=== PATIENT | female | born 1950 | race Caucasian/White ===

== ENCOUNTER 2017-02-20 14:06 | Inpatient (IN) | payer OTHER ==
--- NOTE | 2017-02-20 14:28 | EDPHY ---
HPI/HX/ROS/PE/MDM Narrative: CHIEF COMPLAINT: Chest pain HPI: The patient is a 66-year-old female with a history of prior syncopal episodes of unknown etiology. Patient has been in her usual state of health until this morning. She awoke around 4:00 a.m. and was reading in bed when she developed left-sided chest pain that was worse with inspiration, causing shortness of breath. Patient became very diaphoretic after she attempted to drink some fluid and her symptoms largely resolved after 1 hour. She denies fever or cough. She also describes feeling somewhat fuzzy in her head and complains of left-sided headache that has been present for several months. No syncope. REVIEW OF SYSTEMS: Aside from elements discussed in the HPI, a comprehensive 10-point review of systems was reviewed and is negative. PMH: Includes history of syncope. The patient tells me that Dr. Jones recommended a pacemaker to be placed but she refused. SOCIAL HISTORY: Patient is retired. She used to work in finance. She denies alcohol or drug abuse. PHYSICAL EXAM: General:Patient is alert, in no acute distress. ENT:Eyes are normal to inspection. ENT inspection normal. Neck: Normal inspection. Full range of motion. Respiratory:No respiratory distress. Breath sounds normal bilaterally. Cardiovascular: Regular rate and rhythm. Strong peripheral pulses. Normal cap refill. Abdomen:The abdomen is nontender to palpation. There are no peritoneal signs. There are normal bowel sounds. Back: Normal to inspection. No tenderness to palpation. Skin: Normal color. No rash. Warm and dry. Extremities: Normal appearance. Full range of motion. Neuro: Oriented x3. Normal motor function. Normal sensory function. (Trenton England) ED Course: EKG: No acute changes. No change from previous ECG in 2012. (Trenton England) MDM: 3:40 p.m. the patient's care is transferred to ar. The patient's lab work is unremarkable. Chest x-ray shows mild LVH. EKG is unremarkable. The patient still feels very weak and fatigued however. She still is having pleuritic left- sided chest pain. I recommended admission for further evaluation and cardiac rule out. She agrees. She states that she does not feel safe to go home. For p.m. I discussed the case with Dr. Martha Warren who will admit. (Kyle Page) This patient presents with left-sided chest pain that has a pleuritic component. Her ECG is unremarkable. I have signed the patient out to Dr. Page at 1500 pending completion of workup. (Trenton England) - Data Points Laboratory Results: Laboratory Results 02/20/17 14:32 02/20/17 14:32 02/20/17 02/20/17 02/20/17 14:32 14:32 14:32 WBC 7.60 10^3/uL 10^3/uL (3.80-9.50) RBC 4.80 10^6/uL 10^6/uL (4.18-5.33) Hgb 14.7 g/dL g/dL (12.6-16.3) Hct 42.8 % % (38.0-47.0) MCV 89.2 fL fL (81.5-99.8) MCH 30.6 pg pg (27.9-34.1) MCHC 34.3 g/dL g/dL (32.4-36.7) RDW 13.5 % % (11.5-15.2) Plt Count 290 10^3/uL 10^3/uL (150-400) MPV 11.2 fL fL (8.7-11.7) Neut % (Auto) 60.3 % % (39.3-74.2) Lymph % (Auto) 30.4 % % (15.0-45.0) [place] % (Auto) 7.8 % % (4.5-13.0) Eos % (Auto) 0.5 % L % (0.6-7.6) Baso % (Auto) 0.5 % % (0.3-1.7) Nucleat RBC Rel Count 0.0 % % (0.0-0.2) Absolute Neuts (auto) 4.58 10^3/uL 10^3/uL (1.70-6.50) Absolute Lymphs (auto) 2.31 10^3/uL 10^3/uL (1.00-3.00) Absolute Monos (auto) 0.59 10^3/uL 10^3/uL (0.30-0.80) Absolute Eos (auto) 0.04 10^3/uL 10^3/uL (0.03-0.40) Absolute Basos (auto) 0.04 10^3/uL 10^3/uL (0.02-0.10) Absolute Nucleated RBC 0.00 10^3/uL 10^3/uL (0-0.01) Immature Gran % 0.5 % % (0.0-1.1) Immature Gran # 0.04 10^3/uL 10^3/uL (0.00-0.10) D-Dimer < 0.27 ug/mLFEU ug/mLFEU (0.00-0.50) Sodium 138 mEq/L mEq/L (134-144) Potassium 3.6 mEq/L mEq/L (3.5-5.2) Chloride 102 mEq/L mEq/L (97-110) Carbon Dioxide 25 mEq/l mEq/l (22-31) Anion Gap 11 mEq/L mEq/L (8-16) BUN 8 mg/dL mg/dL (7-23) Creatinine 0.6 mg/dL mg/dL (0.6-1.0) Estimated GFR > 60 Glucose 98 mg/dL mg/dL (70-100) Calcium 9.5 mg/dL mg/dL (8.5-10.4) Troponin I < 0.012 ng/mL ng/mL (0-0.034) General Time Seen by Provider: 02/20/17 14:17 Initial Vital Signs: Initial Vital Signs Temperature (C) 37.1 C 02/20/17 14:10 Heart Rate 67 02/20/17 14:10 Respiratory Rate 18 02/20/17 14:10 Blood Pressure 164/66 H 02/20/17 14:10 O2 Sat (%) 97 02/20/17 14:10 O2 Delivery Mode Room Air Allergies/Adverse Reactions: No Known Allergies Allergy (Unverified 04/14/12 12:17) Home Medications: Medication Instructions Recorded NK [No Known Home Meds] 02/20/17 Departure - Departure Disposition: [facility] Inpatient Acute Clinical Impression: Chest pain in adult Condition: Fair
--- NOTE | 2017-02-20 14:35 | CPEKG ---
Heart Rate: 61 RR Interval: 984 P-R Interval: 188 QRSD Interval: 86 QT Interval: 440 QTC Interval: 444 P [place]: 60 QRS [place]: 4 T Wave [place]: 38 EKG Severity - NORMAL ECG - EKG Impression: SINUS RHYTHM Electronically Signed By: Trenton England 20-Feb-2017 14:51:38
[2017-02-20 14:42] LABS: % IMMATURE GRANULYOCYTES 0.5 % (0.0-1.1); ABSOLUTE IMMATURE GRANULOCYTES 0.04 10^3/uL (0.00-0.10); ADD DIFF? NO; ADD MORPH? NO; ADD SCAN? NO; ATYPICAL LYMPHOCYTE FLAG 0 (0-99); FRAGMENT RBC FLAG 0 (0-99); HEMATOCRIT 42.8 % (38.0-47.0); HEMOGLOBIN 14.7 g/dL (12.6-16.3); LEFT SHIFT FLG 0 (0-99); LIPEMIA HEMOLYSIS FLAG 90 (0-99); MEAN CELL HEMOGLOBIN 30.6 pg (27.9-34.1); MEAN CELL HEMOGLOBIN CONCENTR. 34.3 g/dL (32.4-36.7); MEAN CELL VOLUME 89.2 fL (81.5-99.8); MEAN PLATELET VOLUME 11.2 fL (8.7-11.7); PLATELET CLUMPS FLAG 0 (0-99); PLATELET COUNT 290 10^3/uL (150-400); RED CELL DISTRIBUTION WIDTH 13.5 % (11.5-15.2)
[2017-02-20 14:52] LABS: ANION GAP 11 mEq/L (8-16); CALCIUM 9.5 mg/dL (8.5-10.4); CARBON DIOXIDE 25 mEq/l (22-31); CHLORIDE 102 mEq/L (97-110); CREATININE 0.6 mg/dL (0.6-1.0); GLOMERULAR FILTRATION RATE > 60; GLUCOSE 98 mg/dL (70-100); POTASSIUM 3.6 mEq/L (3.5-5.2); SODIUM 138 mEq/L (134-144)
[2017-02-20 15:04] LABS: TROPONIN I < 0.012 ng/mL (0-0.034)
[2017-02-20] MEDS ORDERED: ONDANSETRON DISINTEGRATING 4 MG TAB PO PRN (18:19)
[2017-02-20] MEDS ORDERED: TEMAZEPAM 15 MG CAP PO PRN (18:19)
[2017-02-20] MEDS ORDERED: ONDANSETRON 4 MG/2 ML VIAL IVP PRN (18:19)
[2017-02-20] MEDS ORDERED: ACETAMINOPHEN 325 MG TAB PO PRN (18:19)
[2017-02-20] MEDS ORDERED: LIDOCAINE 2% VISCOUS 15 ML UDCUP PO ONE (18:23)
[2017-02-20] MEDS ORDERED: MAG HYDROX/AL HYDROX/SIMETH 30 ML UDCUP PO ONE (18:23)
[2017-02-20] MEDS ORDERED: HYOSCYAMINE SULFATE 0.125 MG TAB PO ONE (18:23)
[2017-02-20] MEDS ORDERED: PANTOPRAZOLE SODIUM 40 MG in NS 100 ML IV SCH (18:24)
[2017-02-20] MEDS ORDERED: NS 1,000 ML IV SCH (18:30)
[2017-02-20] MEDS ORDERED: ALBUTEROL 3 ML DEYVIAL IH PRN (18:36)
--- NOTE | 2017-02-20 19:14 | GHP ---
[f rep st] HISTORY AND PHYSICAL DATE OF ADMISSION: 02/20/2017 CHIEF COMPLAINT: Chest pain and difficulty swallowing. HISTORY OF PRESENT ILLNESS: The patient is a 66-year-old female with a history of asthma who presents to the emergency department complaining of chest pain and dysphagia. She states symptoms are associated with some shortness of breath. She recently returned from 10 months traveling in [place] during which time she occasionally drank wine or whiskey. She states she had some GI symptoms and stomach distress intermittently throughout this trip where she noted she ate richer foods than usual. Over the past several days, she has had some tightness in her chest which she initially thought was possibly related to acid. She also endorses some nausea and epigastric discomfort; however, her symptoms became more severe today with some associated shortness of breath and diaphoresis. She denies weight loss. As a matter of fact, she reports some weight gain due to her dietary changes while in [place]. Patient also reports some dysphagia symptoms. No odynophagia. She states while drinking a glass of water this morning, it felt like it was stuck in her esophagus and would not go down. She denies vomiting. She also gives a history of colon polyps and had a polyp that was difficult to retrieve by colonoscopy; thus, she also underwent partial colectomy. Evaluation in the emergency department reveals a nonischemic EKG with a negative troponin and a negative D-dimer. She is admitted to the hospital for further evaluation. PAST MEDICAL HISTORY: 1. Asthma, sounds like this is mild, intermittent. 2. Basal cell carcinoma. 3. History of colon polyps. PAST SURGICAL HISTORY: 1. Carpal tunnel left hand 1994. 2. Bilateral retinal surgery 2001. 3. Removal of basal cell carcinoma 2002. 4. Spinal fusion C5 through C7 in 2003. 5. Left shoulder decompression 2004. 6. Partial laparoscopic colectomy 2006. 7. History of bilateral cataract surgery. 8. Right foot surgery. MEDICATIONS: Flovent 45 mcg and albuterol nebulizer p.r.n., p.r.n. Tylenol, and vitamins. ALLERGIES: No known drug allergies though she reports a bad reaction to an anesthetic after surgery for spinal fusion. SOCIAL HISTORY: The patient denies drug or alcohol use. She lives independently. FAMILY HISTORY: Reviewed, noncontributory. REVIEW OF SYSTEMS: 10-point review of systems was performed and is negative except as per HPI. OBJECTIVE: VITAL SIGNS: Temperature 36.4, blood pressure 146/69, heart rate 50s to 70s, respiratory rate 18. She is 94% on room air. GENERAL: Patient is awake, alert, oriented, no acute distress. HEENT: Head is atraumatic, normocephalic. Pupils equal, round, and reactive to light. Extraocular muscles are intact. Oropharynx clear. Mucous membranes are moist. NECK: Supple. There is no JVD. HEART: Regular rate without murmur. LUNGS: Clear to auscultation bilaterally. ABDOMEN: Soft, nondistended. There is mild diffuse tenderness to palpation without rebound, rigidity, or guarding. Normoactive bowel tones are present. EXTREMITIES: Reveal bilateral trace lower extremity edema. NEUROLOGIC: Grossly nonfocal. LABORATORY DATA: CBC is normal. D-dimer is negative. Basic metabolic panel is completely normal. Creatinine 0.6. Troponin is negative. EKG in the emergency department reveals normal sinus rhythm with minimal ST depression in the lateral leads. Otherwise, no acute ischemic changes are noted. Chest x-ray shows no evidence of pneumonia or acute heart failure. Chest x-ray is personally reviewed by myself. Radiology report is reviewed who raises suspicion for possible left ventricular hypertrophy. ASSESSMENT AND PLAN: The patient is a 66-year-old female with history of asthma who presented to the emergency department with chest tightness and dysphagia. 1. Chest pain. My suspicion for acute coronary syndrome is low. Patient is currently chest pain free. She has a nonischemic EKG and a negative troponin. Given her associated symptoms of shortness of breath and diaphoresis, it is prudent to rule her out, so we will admit her and trend her troponins. An exercise stress test is ordered for the morning if her troponins are negative and she continues to have nonischemic EKG. Alternatively, this could be done as an outpatient given her low risk DIONICIO score of 1. I have some suspicion for a GI source of her symptoms and will try a GI cocktail. I am going to give her IV Protonix for now given her reported dysphagia. 2. Dysphagia. IV PPI as above, transition to oral as tolerated. Speech/ swallow eval. I will order an upper GI study to rule out any type of stricture or obvious mass. If this is abnormal, then she may warrant an upper endoscopy. 3. Asthma. There is no evidence of an acute exacerbation of her asthma. Will order p.r.n. albuterol nebulizers and continue her outpatient Flovent. DISPOSITION: Patient admitted to observation status. If the above workup is reassuring, she will likely be discharged home tomorrow. /[id number]/MODL MTDD
[2017-02-20] MEDS: SUCRALFATE 1 GM TAB PO SCH (20:23)
[2017-02-20] MEDS: PANTOPRAZOLE SODIUM 40 MG in NS 100 ML IV SCH (20:24)
[2017-02-20] MEDS: FLUTICASONE HFA 44 MCG MDI IH SCH (22:00)
[2017-02-21 05:35] LABS: CHOLESTEROL 197 mg/dL (140-220); CHOLESTEROL/HDL RATIO 3.28 RATIO (1.00-4.44); HIGH DENSITY LIPOPROTEIN 60 mg/dL (40-85); LOW DENSITY LIPOPROTEIN 126 mg/dL (80-100); NON-HIGH DENSITY LIPOPROTEIN 137 mg/dL (90-129); TRIGLYCERIDE 58 mg/dL (35-135); VERY LOW DENSITY LIPOPROTEINS 11 mg/dL (8-25)
--- NOTE | 2017-02-21 08:07 | CPEKG ---
Heart Rate: 50 RR Interval: 1200 P-R Interval: 212 QRSD Interval: 76 QT Interval: 464 QTC Interval: 424 P [place]: 66 QRS [place]: 35 T Wave [place]: 42 EKG Severity - BORDERLINE ECG - EKG Impression: SINUS BRADYCARDIA EKG Impression: SLIGHT ST DEPRESSION V3-V6 EKG Impression: NO SIGNIFICANT CHANGE SINCE FEBRUARY 20, 2017 Electronically Signed By: Miguel Gonzalez 21-Feb-2017 08:27:30
[2017-02-21] MEDS: PANTOPRAZOLE SODIUM 40 MG in NS 100 ML IV SCH (08:11)
[2017-02-21] MEDS: SUCRALFATE 1 GM TAB PO SCH ×4 (08:13→19:54)
[2017-02-21] MEDS: FLUTICASONE HFA 44 MCG MDI IH SCH ×3 (08:14→21:00)
--- NOTE | 2017-02-21 10:46 | HOSPPROG ---
Hospitalist Progress Note Assessment/Plan: Healthy 66-year-old woman presents with chest pain and dysphagia. She recently traveled to [place] for several months and has developed some dysphagia at that time she is admitted however this admission with chest pain. Her EKG was not ischemic. She was initially set up for an exercise stress test however this morning she became quite dizzy and lightheaded and felt she could not walk to the treadmill. She does admit to intermittent dizziness and 2 episodes of syncope over the last several years. Workup for this has always been unremarkable. She also complains of left calf pain and some abdominal epigastric pain. # chest pain dizziness. Unclear etiology does not sound ischemic however given her admission to the hospital in her acute symptoms will go ahead and rule her out get a Lexiscan stress test and echocardiogram. If these are normal would have to look at other possibilities for her current symptoms. Will continue to monitor her on telemetry. Initial stress portion of test was abnormal will need additional midnight stay for further evaluation * Echo * Lexiscan * Telemetry monitoring * Consider Holter monitoring or Neurology evaluation at discharge # headaches, chronic typically takes Tylenol. These have been going on for about 2 years. Would consider neurology follow-up after hospitalization. # left leg and calf pain. Patient has had a long travel history and although she has a negative D-dimer will just get a Doppler of her left lower extremity look for either DVT or possible [place]par[place] cyst. # dysphagia with epigastric pain. She had an endoscopy over 25 years ago and has not had anything since then. She is not currently treated with any type of acid suppression. * At LFTs to her labs and an ultrasound to look for gallstones. * Consider upper GI versus endoscopy. She typically sees Dr. Mahmood # mild asthma, continue Flovent. Possible related to acid reflux Subjective: Patient new to me, chart reviewed. He has a number of complaints and is quite worried about what's going on. She denies current chest pain she does have left calf pain and some epigastric pain that is intermittent. Objective: Vital Signs Temp Pulse Resp BP Pulse Ox 36.4 C 62 15 121/62 H 91 L 02/21/17 07:17 02/21/17 10:30 02/21/17 07:17 02/21/17 10:30 02/21/17 07:17 02/20/17 02/21/17 02/22/17 05:59 05:59 05:59 Intake Total 1505 Balance 1505 - Physical Exam Constitutional: no apparent distress, not in pain Eyes: PERRL, anicteric sclera, EOMI Ears, Nose, Mouth, Throat: moist mucous membranes, hearing normal, no oral mucosal ulcers Cardiovascular: regular rate and rhythym, no murmur, rub, or gallop, No edema Respiratory: no respiratory distress, no rales or rhonchi, clear to auscultation Gastrointestinal: normoactive bowel sounds, tenderness (Right upper quadrant, mild), No guarding, No rebound Genitourinary: no bladder fullness Skin: warm, normal color Musculoskeletal: normal joint ROM, no joint effusions Neurologic: AAOx3, No facial droop Psychiatric: interacting appropriately, not anxious, not encephalopathic ICD10 Worksheet Patient Problems: Problems Problem Status Onset Chest pain in adult Acute
[2017-02-21] MEDS ORDERED: REGADENOSON 0.4 MG/5 ML SYR IVP ONE (11:32)
[2017-02-21 11:46] LABS: ALBUMIN 3.7 g/dL (3.5-5.0); BILIRUBIN,TOTAL 0.6 mg/dL (0.1-1.4); BILIRUBIN-CONJUGATED 0.4 mg/dL (0.0-0.5); BILIRUBIN-UNCONJUGATED 0.2 mg/dL (0.0-1.1); TOTAL PROTEIN 6.4 g/dL (6.3-8.2)
--- NOTE | 2017-02-21 12:15 | PDCARST ---
CAR Stress Test Results Type of Stress Test: Lexiscan stress test Indication: cp Description of Procedure: After informed consent was obtained, pt was established to ECG, HR, oximetry, and BP monitoring. At b/l, pt is in SR with BP 120/80 and HR 70 with normal oximetry. Lexiscan was infused with minimal side effects. No significant changes to vitals. Impression: Uneventful Lexiscan infusion. Conclusion: Await nuclear images.
[2017-02-21] MEDS: PANTOPRAZOLE SODIUM 40 MG TAB PO SCH (19:54)
[2017-02-22 07:29] VITALS: RESP 17
[2017-02-22] MEDS: FLUTICASONE HFA 44 MCG MDI IH SCH (08:51)
[2017-02-22] MEDS: PANTOPRAZOLE SODIUM 40 MG TAB PO SCH (09:00)
[2017-02-22] MEDS: SUCRALFATE 1 GM TAB PO SCH ×3 (09:00→12:43)
--- NOTE | 2017-02-22 09:37 | ECHO ---
[id number] + + [address] : : [place] [address] : : [phone] + + Adult Echocardiographic Report + -+ :Name: Adin REDDY Date: 02/21/2017 01:46 PM : : Hospital Admission Number: [id number] Location: 20 0: :: 1950 Gender: Female Height: 60 in : :Age: 66 yrs Race: WH Weight: 70 lb : :Reason For Study: Dizziness : : BSA: 1.2 meters2 : + -+ MMode/2D Measurements \T\ Calculations IVSd: 0.65 cm LVIDd: 4.6 cm FS: 42.4 % Ao root diam: LVPWd: 0.51 cm LVIDs: 2.7 cm EDV(Teich): 3.3 cm 98.6 ml LA dimension: ESV(Teich): 3.3 cm 26.1 ml EF(Teich): 73.5 % LVLd ap4: 8.8 cm SV(MOD-sp4): EDV(MOD-sp4): 67.0 ml 87.0 ml LVLs ap4: 6.7 cm ESV(MOD-sp4): 20.0 ml EF(MOD-sp4): 77.0 % Normal Measurement Values: + + :LVIDd (3.5-5.7cm) IVSd (0.6-1.1cm) LVPWd (0.6-1.1cm) Aortic Root (2.0-3.7cm)Left Atrium (1.5-4.0cm): :LV Vol(d) (76-115ml) LV Vol(s) (29-48ml) Ejec Fraction (50-65%)PV Mario (0.6- 1.2m/s) TV Mario (0.4-1.0m/s) : :MV E Mario (0.8-1.0m/s)MV A Mario (0.3-1.0m/s)LVOT Mario (0.7-1.2m/s) Asc Ao Mario ( 0.9-1.8m/s) : + + Doppler Measurements \T\ Calculations MV E max mario: Ao V2 max: AI max mario: TR max mario: 89.8 cm/sec 115.1 cm/sec 399.6 cm/sec 213.1 cm/sec MV A max mario: Ao max PG: AI max P.9 mmHgTR max P.9 cm/sec 5.3 mmHg AI dec slope: 18.2 mmHg MV E/A: 1.1 168.5 cm/sec2 RAP systole: AI P1/2t: 694.7 msec5.0 mmHg RVSP(TR): 23.2 mmHg Left Ventricle The left ventricle is normal in size and function. There is normal left ventricular wall thickness. Left ventricular systolic function is normal. LVEF = 65%. No regional wall motion abnormalities noted. Right Ventricle The right ventricle is normal in size and function. Atria The left atrial size is normal. Right atrial size is normal. The interatrial septum is intact with no evidence for an atrial septal defect. Mitral Valve The mitral valve is normal in structure and function. There is no evidence of mitral valve prolapse. There is no mitral valve stenosis. Mild MR without MV prolapse or MAC. Tricuspid Valve Normal tricuspid valve. There is trace tricuspid regurgitation. Aortic Valve The aortic valve is trileaflet. The aortic valve opens well. There is no aortic stenosis. Mild AI noted. Pulmonic Valve The pulmonic valve is normal in structure and function. Trivial PI noted. Great Vessels The aortic root is normal size. Pericardium/Pleural There is no pericardial effusion. Conclusion A complete two-dimensional transthoracic echocardiogram was performed (2D, M-mode, Doppler and color flow Doppler). 1)Normal LV size and systolic function with a LVEF of 65% and normal wall motions. 2)Normal diastolic function. 3)Mild AI without . Trileaflet aortic valve. 4)Mild MR without MV prolapse. 5)Trivial TR noted. Unable to assess PA pressures. 6)No pericardial effusion. Final Reading Physician: Constantine Hooper electronically signed on 02/22/2017 09:35 AM Ordering Physician: Karyn Méndez Performed By: Sarai Fernandez, LONGCS
[2017-02-22 11:41] VITALS: BP 112/69; PULSE 67; TEMP 97.4; O2SAT 92
[2017-02-22] MEDS ORDERED: FLUDROCORTISONE ACETATE 0.1 MG TAB PO SCH (12:30)
--- NOTE | 2017-02-22 13:13 | GDS ---
[f rep st] DISCHARGE SUMMARY DIAGNOSES: 1. Recurrent dizzy spells and orthostatic type symptoms. 2. Syncope 2 weeks ago. 3. Headaches. 4. Noncardiac chest pain. PROCEDURES: 1. Echocardiogram: Normal left ventricular size and systolic function. 2. Abdominal ultrasound: No cholelithiasis or biliary ductal dilation, hepatic steatosis noted. 3. Myocardial perfusion scan: No evidence of ischemia and normal ejection fraction. 4. Lower extremity Doppler: Left lower leg negative for deep vein thrombosis. 5. Upper gastrointestinal series normal. HOSPITAL COURSE: The patient is a 66-year-old who has a history significant for syncopal events. M ost recently had occurred on February 04 as she was leaving [place]. Since then, she has had recurren t dizzy spells and lightheadedness. She was admitted here with some chest pressure and dizzy spells. She was admitted overnight on tele metry. Her telemetry was normal. She had a cardiac workup, including echocardiogram and myocardial perfusion scan, both of which were normal. Because she had chest discomfort, GI evaluation was don e, including an upper GI and abdominal ultrasound, both of which were normal, except for some fatty liver disease. She continued to have some lightheaded and dizzy spells, although no syncope was not ed. During these episodes, her telemetry was fairly unremarkable, except for some mild bradycardia. She did have some orthostatic type symptoms during her stay, so with her negative workup, we started her on low-dose Florinef at 0.1 mg daily to try. Hopefully, this will reduce her episodes of dizzy spells and prevent further syncope. She is to follow up with Dr. Patel as an outpatient to see if the medication is making any difference in her spells. Additionally, because of her ongoing headaches, I referred her to Neurology to follow up as an outpa tient, and she also had some dysphagia on admission, and she should follow up with Dr. Ela solomon. CONDITION ON DISCHARGE: Good. VITAL SIGNS: Stable. She is afebrile. She is 92% on room air. He art rate 53-67, with a blood pressure of 112/69. GENERAL: She is alert and oriented. CARDIAC: He r heart is regular. LUNGS: Clear. Her exam is unremarkable. DISCHARGE MEDICATIONS: Please see discharge medication form. I did start her on low dose of [place] ef to take daily. FOLLOWUP INSTRUCTIONS: She should follow up with Dr. Patel in 1-2 weeks for a recheck of her blo od pressure and see if the Florinef is helping her. Follow up with Neurology, contact information jose armando santoro. This is for her headaches and further evaluation of her dizzy spells. Follow up with Dr. Mario juarez for her dysphagia and possible endoscopy. Of note, her upper GI here in the hospital was no rmal. Total time spent with patient on day of discharge in coordination of care was 35 minutes. /[id number]/MODL
== END 2017-02-22 15:29 | disposition home or self-care (01) | DRG 313 ==
LOC: F2W 17:55 → OBSVTOIN 02-21 14:57
PROVIDERS: ADMIT Hospitalist; ATTEND Internal Medicine
DX: R07.89 Other chest pain (principal); R42 Dizziness and giddiness; R55 Syncope and collapse; R13.10 Dysphagia, unspecified; R51 Headache
CPT/HCPCS: 92610-GN; 97161-GP; A9500; G0378; G8978-GP-CH; G8979-GP-CH; G8980-GP-CH; G8996-GN-CH; G8997-GN-CH; G8998-GN-CH; J2785

== ENCOUNTER → 2017-04-29 | Outpatient (CLI) | payer OTHER | LOC: FIMAGING 11:09 | PROVIDERS: ATTEND Internal Medicine | DX: Z12.31 Encounter for screening mammogram for malignant neoplasm of breast (principal) | CPT/HCPCS: G0202 ==

== ENCOUNTER → 2018-01-11 | Outpatient (CLI) | payer OTHER | LOC: FIMAGING 10:51 | PROVIDERS: ATTEND Internal Medicine | DX: G31.84 Mild cognitive impairment of uncertain or unknown etiology (principal); F51.04 Psychophysiologic insomnia; F32.9 Major depressive disorder, single episode, unspecified; R41.3 Other amnesia ==

== ENCOUNTER → 2018-01-29 | Outpatient (CLI) | payer OTHER | LOC: FIMAGING 14:44 | PROVIDERS: ATTEND Internal Medicine | DX: Z13.820 Encounter for screening for osteoporosis (principal); M85.88 Other specified disorders of bone density and structure, other site; Z78.0 Asymptomatic menopausal state ==

== ENCOUNTER → 2018-03-31 | Outpatient (CLI) | payer OTHER | LOC: FIMAGING 11:52 | PROVIDERS: ATTEND Internal Medicine | DX: R05 Cough (principal) ==

== ENCOUNTER → 2018-04-23 | Outpatient (CLI) | payer OTHER ==
--- NOTE | 2018-04-23 15:33 | CPEEG ---
[f rep st] ELECTROENCEPHALOGRAM DATE OF STUDY: 04/23/2018 INTERPRETATION: Essentially normal EEG during wakefulness and sleep. There were no definite potenti ally epileptogenic abnormalities present in the awake or sleep recordings. REPORT: This EEG contains 10 Hz alpha activity to the posterior head regions. There was no abnormal activation at rest, during photic stimulation hyperventilation. As the patient became drowsy and fe ll asleep during the study, there were occasional wicket like waves and theta transients over the bit emporal head regions. These waveforms did not evolve into definite potentially epileptogenic abnorma lities. These findings can be consistent as a drowsy pattern in this age group. If there is continu ed clinical suspicion, a repeat 4-hour video EEG study may be helpful to clarify the nature of these findings. /[id number]/MODL
== END ==
LOC: FCPNEURO 07:42
PROVIDERS: ATTEND Psychiatry & Neurology Neurology
DX: R41.3 Other amnesia (principal)

== ENCOUNTER → 2018-05-24 | Outpatient (CLI) | payer OTHER | LOC: FIMAGING 10:02 | PROVIDERS: ATTEND Psychiatry & Neurology Neurology | DX: R41.3 Other amnesia (principal); R51 Headache; R94.02 Abnormal brain scan; Z98.1 Arthrodesis status ==